=== PATIENT | female | born 1945 | race Caucasian/White ===

== ENCOUNTER 2017-02-02 12:07 | Inpatient (IN) | payer OTHER ==
[2017-02-02] MEDS ORDERED: ALBUTEROL 3 ML DEYVIAL IH ONE (12:26)
[2017-02-02] MEDS ORDERED: IPRATROPIUM/ALBUTEROL 3 ML DEYVIAL IH ONE (12:26)
[2017-02-02] MEDS ORDERED: methylPREDNISolone SOD SUCC 125 MG/2 ML VIAL IVP ONE (12:26)
--- NOTE | 2017-02-02 12:31 | EDPHY ---
H & P Time Seen by Provider: 02/02/17 12:14 HPI/ROS: CHIEF COMPLAINT: Cough and short of breath HISTORY OF PRESENT ILLNESS: This 72-year-old woman moved from [place] 1 month ago to be with her family. She has been having a cough and worsening shortness of breath over the last 3 days. Productive today. Worse with lying down or with any exertion. Associated intermittently with chest pain only when she coughs. Not associated with lower extremity swelling but a little bit of a subjective fever yesterday and today. Symptoms severe and she went to a retail clinic and had an oxygen saturation in the low 80s and was referred here. REVIEW OF SYSTEMS: Eye: no change in vision ENT: no sore throat Cardiac: No syncope or palpitations Pulmonary: No hemoptysis Abdomen: no vomiting, diarrhea, abdominal pain Musculoskeletal: no back pain Skin: no rash Neuro: no headache Constitutional: HPI : no urinary symptoms A comprehensive 10 point review of systems is otherwise negative aside from elements mentioned in the history of present illness. PAST MEDICAL HISTORY: Includes diabetes, anxiety, COPD. Peripheral vascular disease with lower extremity clot and angioplasty in the past. No history of venous thromboembolism. Social history: Current smoker, recently moved from [place] as noted above 1 month ago. General Appearance: Alert and conversant, cooperative. Eyes: No scleral icterus. ENT, Mouth: Normal mucous membranes. No angioedema or oral sinuses. Respiratory: Bilateral expiratory wheezes and rhonchi, diminished breath sounds bilaterally. No focal lung sounds or rales. Cardiovascular: Regular rate and rhythm. Frequent extrasystole. Gastrointestinal: Abdomen is soft and non tender. Neurological: Alert and oriented x3. Normally conversant. Face symmetric, normal movement and sensation in all extremities. Skin: Warm and dry, no rashes. Musculoskeletal: No peripheral edema and no joint swelling. No calf tenderness. Both feet are warm and well perfused. Psychiatric: Not agitated. Emergency Department course/MDM: Patient's oxygen saturation is in the low to mid 80s here in the emergency department. She is immediately placed on nasal cannula which got her to 96%. Differential is broad and includes but not limited to ACS and CHF, PE, COPD exacerbation, pneumonia, bronchitis, influenza. With her wheezing and rhonchi has COPD exacerbation or pneumonia are more likely than others. Blood cultures and lactate screening, chest x-ray, EKG, chest x-ray and Troponin. DuoNeb and albuterol nebulizer, 125 mg IV Solu-Medrol. Will require admission for hypoxia. 1254: Chest x-ray reviewed does not show pneumonia. Admission for bronchodilators, IV steroids, and supplemental oxygen. Reason for transfer to [facility] is inpatient hospital bed not available at [facility], discussed with family and consented. Requires ambulance transport because of need for supplemental oxygen. Results discussed with patient and family at this time. Does not appear to have pneumonia. Respiratory panel is pending. 1344: Patient is feeling better, still has bilateral wheezing. Smoking Status: Current every day smoker Constitutional: Initial Vital Signs Temperature (C) 36.6 C 02/02/17 13:00 Heart Rate 75 02/02/17 13:00 Respiratory Rate 18 02/02/17 13:00 Blood Pressure 139/64 H 02/02/17 13:00 O2 Sat (%) 86 L 02/02/17 13:00 Allergies/Adverse Reactions: hydrocodone Allergy (Verified 02/02/17 12:23) Home Medications: Medication Instructions Recorded ALPRAZolam 02/02/17 Atorvastatin Calcium 02/02/17 Carbidopa 02/02/17 Hydrochlorothiazide 02/02/17 Lisinopril 02/02/17 Oxybutynin 02/02/17 Pantoprazole Sodium 02/02/17 Plavix 02/02/17 Quetiapine Fumarate 02/02/17 VENLAFAXINE HCL 02/02/17 Medical Decision Making - Diagnostics EKG Interpretation: 12-lead EKG interpreted by me; official reading is in trace master. My interpretation is sinus rhythm rate 80 with PAC but no acute ST changes. Imaging Results: Imaging Impressions Chest X-Ray 02/02/17 12:26 Impression: 1. Bronchitis/airways disease. 2. No definite focal pneumonia. 3. Calcified granulomata. Chest x-ray personally interpreted as breast implants bronchitis and no pneumonia, reviewed with radiologist Kiah at 12:53 p.m. who agrees Differential Diagnosis: Differential diagnosis considered for shortness of breath including but not limited to pulmonary infectious process, COPD, asthma, pulmonary embolus and congestive heart failure. [facility] - Data Points Laboratory Results: Laboratory Results 02/02/17 12:26 02/02/17 12:35 02/02/17 02/02/17 02/02/17 12:35 12:35 12:35 WBC RBC Hgb Hct MCV MCH MCHC RDW Plt Count MPV Neut % (Auto) Lymph % (Auto) [place] % (Auto) Eos % (Auto) Baso % (Auto) Nucleat RBC Rel Count Absolute Neuts (auto) Absolute Lymphs (auto) Absolute Monos (auto) Absolute Eos (auto) Absolute Basos (auto) Absolute Nucleated RBC Immature Gran % Immature Gran # PT 13.3 SEC SEC (12.0-15.0) INR 1.04 (0.83-1.16) APTT 39.3 SEC H SEC (23.0-38.0) VBG Lactic Acid 1.0 mmol/L mmol/L (0.7-2.1) Sodium 144 mEq/L mEq/L (134-144) Potassium 4.0 mEq/L mEq/L (3.5-5.2) Chloride 105 mEq/L mEq/L (97-110) Carbon Dioxide 26 mEq/l mEq/l (22-31) Anion Gap 13 mEq/L mEq/L (8-16) BUN 18 mg/dL mg/dL (7-23) Creatinine 0.8 mg/dL mg/dL (0.6-1.0) Estimated GFR > 60 Glucose 109 mg/dL H mg/dL (70-100) Calcium 9.9 mg/dL mg/dL (8.5-10.4) Total Bilirubin 0.9 mg/dL mg/dL (0.1-1.4) Troponin I < 0.012 ng/mL ng/mL (0.000-0.034) 02/02/17 12:26 WBC 6.72 10^3/uL 10^3/uL (3.80-9.50) RBC 4.69 10^6/uL 10^6/uL (4.18-5.33) Hgb 13.9 g/dL g/dL (12.6-16.3) Hct 41.4 % % (38.0-47.0) MCV 88.3 fL fL (81.5-99.8) MCH 29.6 pg pg (27.9-34.1) MCHC 33.6 g/dL g/dL (32.4-36.7) RDW 13.1 % % (11.5-15.2) Plt Count 192 10^3/uL 10^3/uL (150-400) MPV 10.6 fL fL (8.7-11.7) Neut % (Auto) 70.0 % % (39.3-74.2) Lymph % (Auto) 19.9 % % (15.0-45.0) [place] % (Auto) 7.1 % % (4.5-13.0) Eos % (Auto) 2.5 % % (0.6-7.6) Baso % (Auto) 0.4 % % (0.3-1.7) Nucleat RBC Rel Count 0.0 % % (0.0-0.2) Absolute Neuts (auto) 4.69 10^3/uL 10^3/uL (1.70-6.50) Absolute Lymphs (auto) 1.34 10^3/uL 10^3/uL (1.00-3.00) Absolute Monos (auto) 0.48 10^3/uL 10^3/uL (0.30-0.80) Absolute Eos (auto) 0.17 10^3/uL 10^3/uL (0.03-0.40) Absolute Basos (auto) 0.03 10^3/uL 10^3/uL (0.02-0.10) Absolute Nucleated RBC 0.00 10^3/uL 10^3/uL (0-0.01) Immature Gran % 0.1 % % (0.0-1.1) Immature Gran # 0.01 10^3/uL 10^3/uL (0.00-0.10) PT INR APTT VBG Lactic Acid Sodium Potassium Chloride Carbon Dioxide Anion Gap BUN Creatinine Estimated GFR Glucose Calcium Total Bilirubin Troponin I Medications Given: Discontinued Medications Albuterol (Proventil Neb) 3 ml IH EDNOW ONE Stop: 02/02/17 12:27 Last Admin: 02/02/17 12:46 Dose: 3 ml Albuterol/Ipratropium (Duoneb) 3 ml IH EDNOW ONE Stop: 02/02/17 12:27 Last Admin: 02/02/17 12:46 Dose: 3 ml Methylprednisolone Sodium Succinate (Solu-Medrol) 125 mg IVP EDNOW ONE Stop: 02/02/17 12:27 Last Admin: 02/02/17 12:46 Dose: 125 mg Departure - Departure Disposition: [facility] Acute Clinical Impression: Chronic obstructive pulmonary disease with acute exacerbation Condition: Good
--- NOTE | 2017-02-02 12:34 | CPEKG ---
Heart Rate: 80 RR Interval: 750 P-R Interval: 180 QRSD Interval: 88 QT Interval: 384 QTC Interval: 443 P Orlando: 72 QRS Orlando: 53 T Wave Orlando: 64 EKG Severity - BORDERLINE ECG - EKG Impression: SINUS RHYTHM EKG Impression: ATRIAL PREMATURE COMPLEX EKG Impression: PROBABLE LEFT ATRIAL ABNORMALITY EKG Impression: BORDERLINE T ABNORMALITIES, ANT-LAT LEADS Electronically Signed By: Mohan Ray 02-Feb-2017 12:44:45
[2017-02-02 12:46] LABS: % IMMATURE GRANULYOCYTES 0.1 % (0.0-1.1); ABSOLUTE IMMATURE GRANULOCYTES 0.01 10^3/uL (0.00-0.10); ADD DIFF? NO; ADD MORPH? NO; ADD SCAN? NO; ATYPICAL LYMPHOCYTE FLAG 0 (0-99); FRAGMENT RBC FLAG 0 (0-99); HEMATOCRIT 41.4 % (38.0-47.0); HEMOGLOBIN 13.9 g/dL (12.6-16.3); LEFT SHIFT FLG 0 (0-99); LIPEMIA HEMOLYSIS FLAG 80 (0-99); MEAN CELL HEMOGLOBIN 29.6 pg (27.9-34.1); MEAN CELL HEMOGLOBIN CONCENTR. 33.6 g/dL (32.4-36.7); MEAN CELL VOLUME 88.3 fL (81.5-99.8); MEAN PLATELET VOLUME 10.6 fL (8.7-11.7); PLATELET CLUMPS FLAG 0 (0-99); PLATELET COUNT 192 10^3/uL (150-400); RED BLOOD CELL COUNT 4.69 10^6/uL (4.18-5.33); RED CELL DISTRIBUTION WIDTH 13.1 % (11.5-15.2)
[2017-02-02 12:58] LABS: ANION GAP 13 mEq/L (8-16); BILIRUBIN,TOTAL 0.9 mg/dL (0.1-1.4); CALCIUM 9.9 mg/dL (8.5-10.4); CARBON DIOXIDE 26 mEq/l (22-31); CHLORIDE 105 mEq/L (97-110); CREATININE 0.8 mg/dL (0.6-1.0); GLOMERULAR FILTRATION RATE > 60; GLUCOSE 109 mg/dL (70-100); INR 1.04 (0.83-1.16); PROTIME(PATIENT) 13.3 SEC (12.0-15.0); SODIUM 144 mEq/L (134-144)
[2017-02-02 12:59] LABS: APTT 39.3 SEC (23.0-38.0)
[2017-02-02 13:21] LABS: TROPONIN I < 0.012 ng/mL (0.000-0.034)
[2017-02-02] MEDS ORDERED: ONDANSETRON 4 MG/2 ML VIAL IVP PRN (15:03)
[2017-02-02] MEDS ORDERED: ONDANSETRON DISINTEGRATING 4 MG TAB PO PRN (15:03)
[2017-02-02] MEDS ORDERED: ALBUTEROL 3 ML DEYVIAL IH PRN (15:03)
[2017-02-02] MEDS ORDERED: ACETAMINOPHEN 325 MG TAB PO PRN (15:03)
[2017-02-02] MEDS: IPRATROPIUM/ALBUTEROL 3 ML DEYVIAL IH SCH ×2 (16:46→22:39)
[2017-02-02] MEDS ORDERED: D50W 25 GM/50 ML SYR IVP PRN (16:50)
[2017-02-02] MEDS: AZITHROMYCIN 250 MG TAB PO SCH (16:56)
--- NOTE | 2017-02-02 17:18 | GHP ---
[f rep st] HISTORY AND PHYSICAL DATE OF ADMISSION: 02/02/2017 CHIEF COMPLAINT: Shortness of breath. HISTORY OF PRESENT ILLNESS: A 72-year-old female with a history of COPD, non oxygen dependent, who r eports having some intermittent shortness of breath earlier this week, then in the last 48 hours deve loping marked worsening in shortness of breath and increasing cough. The patient describes it is pro ductive of some sputum, although cannot describe if it was discolored or not. The patient has been e xperiencing subjective fevers and chills. Denies any chest pain, nausea, vomiting, diarrhea, dysuria , hematuria, lower extremity edema. Has had some shoulder pain but denies myalgias or arthralgias. PAST MEDICAL HISTORY: 1. COPD. 2. Hypertension. 3. Diabetes. 4. Parkinson's. 5. Peripheral vascular disease status post angioplasty. SOCIAL HISTORY: The patient is still actively smoking half pack per day. Has greater than 50 pack-y ear history. Denies alcohol, illicit drugs, or marijuana. FAMILY HISTORY: Positive for lung cancer. REVIEW OF SYSTEMS: A 10-point review of systems is negative with the exception of that reported in t he HPI. ADVANCE DIRECTIVES: Patient is full COR, full tube. Her son would be her medical decision maker. PHYSICAL EXAMINATION: VITAL SIGNS: Blood pressure 130/47, heart rate 70, respiratory rate 16, satur ating 86% on room air, 36.6. GENERAL: This is an elderly female, appears older than her stated age, sitting up in her chair in no acute distress. HEENT: Notable for moist mucous membranes. Eye exam is negative for any icterus. CARDIAC: Patient is regular rate and rhythm. PULMONARY: Patient is diffusely rhonchorous with wheezing bilaterally and diminished air movement. GASTROINTESTINAL: Posi tive bowel sounds. ABDOMEN: Soft. MUSCULOSKELETAL: Negative for any lower extremity edema. SKIN: Negative for any rashes. NEUROLOGIC: The patient is alert and oriented x3. PSYCHIATRIC: She is slow in processing but cooperative. DATA: White count 6.7, hematocrit 41.4, platelets of 192, creatinine 0.8. Troponin less than 0.012. Chest x-ray, which I personally reviewed and interpreted, shows no acute infiltrates or edema. Rad iology comments on airway inflammation. ASSESSMENT AND PLAN: This is a 72-year-old female presenting with shortness of breath. 1. Acute hypoxic respiratory failure presumed secondary to acute chronic obstructive pulmonary disea se exacerbation. The patient does not appear to have pneumonia either by labs or chest x-ray. I hav e sent a respiratory panel to rule out influenza. Will initiate inhaled DuoNeb, scheduled p.o. predn isone 60 daily, and azithromycin oral. The patient historically does not use oxygen. Hopeful we alex l be able to wean her entirely before disposition. 2. Acute chronic obstructive pulmonary disease exacerbation. Unclear if there is an underlying geremias l trigger or not. Again, labs are pending. Will initiate inhaled medications, steroids, and oral an tibiotics. 3. Parkinson's. Will continue patient's home medications. Have asked for Physical Therapy, Occupat ional Therapy to evaluate the patient make sure there are no disposition needs. 4. Diabetes. Can cover with sliding scale insulin while inpatient. Blood sugars are reasonably con trolled at presentation. 5. Hypertension. Will continue her home medications when reconciled. Pressures are adequately cont rolled at presentation. 6. Peripheral vascular disease. It is unfortunate the patient is still actively smoking. Will cont inue her statin therapy as well as Plavix, prophylaxis with Lovenox. DIET: Regular. DISPOSITION: I expect greater than 2 midnights as the patient has multiple medical comorbidities, pr esenting with acute hypoxia, requiring aggressive pulmonary treatment and monitoring. I have discuss ed the case with the emergency room physician. The patient will be triaged to the [facility] for care. /[id number]/MODL
[2017-02-02] MEDS ORDERED: ALPRAZolam 0.5 MG TAB PO PRN (17:21)
[2017-02-02] MEDS: INSULIN LISPRO 100 UNIT/ML SC SCH (17:44)
[2017-02-02] MEDS: NICOTINE 21 MG/24 HR PATCH TD SCH (17:46)
[2017-02-02] MEDS ORDERED: QUEtiapine FUMARATE 200 MG TAB PO SCH (21:00)
[2017-02-02] MEDS ORDERED: ATORVASTATIN CALCIUM 40 MG TAB PO SCH (21:00)
[2017-02-02] MEDS ORDERED: CETIRIZINE 10 MG TAB PO SCH (21:00)
[2017-02-02] MEDS: OXYBUTYNIN CHLORIDE 5 MG TAB PO SCH (21:15)
[2017-02-02] MEDS: guaiFENesin 600 MG TAB.ER PO SCH (21:16)
[2017-02-02] MEDS: CARBIDOPA/LEVODOPA 25 MG/100 MG TAB PO SCH (21:17)
[2017-02-03 05:16] LABS: % IMMATURE GRANULYOCYTES 0.3 % (0.0-1.1); ABSOLUTE IMMATURE GRANULOCYTES 0.03 10^3/uL (0.00-0.10); ADD DIFF? NO; ADD MORPH? NO; ADD SCAN? NO; ATYPICAL LYMPHOCYTE FLAG 10 (0-99); FRAGMENT RBC FLAG 0 (0-99); HEMATOCRIT 37.7 % (38.0-47.0); HEMOGLOBIN 12.8 g/dL (12.6-16.3); LEFT SHIFT FLG 0 (0-99); LIPEMIA HEMOLYSIS FLAG 90 (0-99); MEAN CELL HEMOGLOBIN 30.3 pg (27.9-34.1); MEAN CELL VOLUME 89.1 fL (81.5-99.8); PLATELET CLUMPS FLAG 0 (0-99); PLATELET COUNT 183 10^3/uL (150-400); RED BLOOD CELL COUNT 4.23 10^6/uL (4.18-5.33)
[2017-02-03] MEDS ORDERED: FLU VACC QS 2017-18 (3YR+)/PF 0.5 ML SYR (FLUARIX QUAD) IM ONE (05:34)
[2017-02-03] MEDS: CARBIDOPA/LEVODOPA 25 MG/100 MG TAB PO SCH ×2 (05:49→11:51)
[2017-02-03 05:56] LABS: ANION GAP 8 mEq/L (8-16); CARBON DIOXIDE 26 mEq/l (22-31); CHLORIDE 104 mEq/L (97-110); CREATININE 0.7 mg/dL (0.6-1.0); GLOMERULAR FILTRATION RATE > 60; GLUCOSE 126 mg/dL (70-100); POTASSIUM 4.2 mEq/L (3.5-5.2); SODIUM 138 mEq/L (134-144)
[2017-02-03] MEDS: IPRATROPIUM/ALBUTEROL 3 ML DEYVIAL IH SCH ×2 (06:13→12:02)
[2017-02-03 08:21] VITALS: BP 118/46; TEMP 97.8
[2017-02-03] MEDS: guaiFENesin 600 MG TAB.ER PO SCH (08:28)
[2017-02-03] MEDS: AZITHROMYCIN 250 MG TAB PO SCH (08:28)
[2017-02-03] MEDS: OXYBUTYNIN CHLORIDE 5 MG TAB PO SCH (08:30)
[2017-02-03] MEDS: NICOTINE 21 MG/24 HR PATCH TD SCH (08:33)
[2017-02-03] MEDS: INSULIN LISPRO 100 UNIT/ML SC SCH ×2 (08:34→12:56)
[2017-02-03] MEDS ORDERED: LISINOPRIL/HCTZ 10/12.5 MG 1 EA TAB PO SCH (09:00)
[2017-02-03] MEDS ORDERED: predniSONE 20 MG TAB PO SCH (09:00)
[2017-02-03] MEDS ORDERED: PANTOPRAZOLE SODIUM 40 MG TAB PO SCH (09:00)
[2017-02-03] MEDS ORDERED: VENLAFAXINE XR 150 MG CAP PO SCH (09:00)
[2017-02-03] MEDS ORDERED: ENOXAPARIN 40 MG/0.4 ML SYR SC SCH (09:00)
[2017-02-03] MEDS ORDERED: CLOPIDOGREL BISULFATE 75 MG TAB PO SCH (09:00)
--- NOTE | 2017-02-03 10:29 | PDIAF ---
- Diagnosis Code Status: Full Code - Medication Management Discharge Medications: Medications to Continue on Transfer ALPRAZolam [Xanax 0.5 MG (*)] 0.5 mg PO BID PRN 02/02/17 [Last Taken 01/30/17] Atorvastatin Calcium [Lipitor 40 mg (*)] 40 mg PO HS 02/02/17 [Last Taken ] Carbidopa/Levodopa 25/100Mg [Sinemet 25/100 MG (*)] 1 tab PO 0700,1200,2100 [Last Taken 02/01/17] Cetirizine [ZyrTEC 10 mg (*)] 10 mg PO HS 02/02/17 [Last Taken 02/01/17] Clopidogrel Bisulfate [Clopidogrel] 75 mg PO DAILY 02/02/17 [Last Taken 02/01/17 ] Inhaler 02/02/17 [Last Taken Unknown] Lisinopril/Hydrochlorothiazide [Lisinopril-Hctz 10-12.5 mg Tab] 1 each PO DAILY 02/02/17 [Last Taken 02/01/17] Oxybutynin Chloride 5 mg PO BID 02/02/17 [Last Taken 02/01/17] Pantoprazole Sodium [Protonix 40mg (*)] 40 mg PO DAILY 02/02/17 [Last Taken ] QUEtiapine FUMARATE [Seroquel 200 mg (*)] 200 mg PO HS 02/02/17 [Last Taken ] Venlafaxine HCl [Venlafaxine HCl ER] 150 mg PO DAILY 02/02/17 [Last Taken ] metFORMIN HCL [Metformin HCl ER] 500 mg PO HS 02/02/17 [Last Taken 02/01/17] Acetaminophen [Tylenol 325mg (*)] 650 mg PO Q4HRS PRN tab 02/03/17 [Last Taken Unknown] Albuterol [Proventil Neb] 3 ml IH Q4-6PRN PRN #1 box 02/03/17 [Last Taken Unknown] Azithromycin [Zithromax] 500 mg PO DAILY #3 tab 02/03/17 [Last Taken Unknown] Ipratropium/Albuterol [Duoneb (*)] 3 ml IH QID #1 box 02/03/17 [Last Taken Unknown] Nicotine [Nicoderm Cq 21 mg (*)] 21 mg TD DAILY #14 patch 02/03/17 [Last Taken Unknown] guaiFENesin [Mucinex 600 MG (*)] 1,200 mg PO BID #14 tab.er 02/03/17 [Last Taken Unknown] predniSONE 60 mg PO DAILY #9 tablet 02/03/17 [Last Taken Unknown] Director Cardiology Antibiotics: n/a, short term azithro only Discharge Medications: Refer to the Discharge Home Medication list for PRN reason. PICC Care - Routine: N/A - Orders Services needed: Registered Nurse Home Care Face to Face: done 02/03/2017 Dr Cici Emery Oxygen: yes, 2 L NC Diet Recommendation: no restrictions on diet (is a diabetic though) Diet Texture: Regular Texture Diet Avila: Not applicable - Follow Up Care Current Providers and Referrals: NONE *PRIMARY CARE P,. [Primary Care Provider] - 1-2 days (needs a PCP- [facility] [place] [facility] [place]
--- NOTE | 2017-02-03 10:30 | PDHOMEO2F ---
Home Oxygen Face to Face Home Orders: I certify that a physician or a nurse practitioner or physician's assistant manager has had a [id number] encounter with this patient on the date of this order due to the diagnosis listed, which relates to the primary reason the patient requires home oxygen. Alternative treatments have been tried, or considered, and deemed ineffective. It is anticipated that supplemental oxygen will result in improvement with treatment. Home oxygen qualifying diagnosis: hypoxia, COPD exacerbation SpO2 on room air (%): 86 Frequency of home oxygen needed: continuous Home oxygen liters per minute: 2 Home oxygen delivery device: nasal cannula Concentrator: Yes E-tanks for mobility and back up: Yes If ordering portable O2, is the patient mobile in the home?: Yes I certify that, based on these findings, the home oxygen is medically necessary for this patient for the following length of time. Length of time home oxygen needed: 3 months (maybe longer, per PCP to reassess)
[2017-02-03 12:29] VITALS: PULSE 76; RESP 18; O2SAT 94
--- NOTE | 2017-02-03 12:44 | ASMTCMCOM ---
CM Note CM Note Notes: Spoke w/pt and son re; dc w/ home health RN for new O2. Lives w/son, CM made several referrals and waiting for responses. Date Signed: 02/03/2017 12:43 PM Electronically Signed By:Marva Kirkland RN
--- NOTE | 2017-02-03 13:45 | ASMTCMCOM ---
CM Note CM Note Notes: Pt set up with [facility], confirmed w/DIL and son. Pt to set up appt to establish care w/ Hola Osorio [phone] on Saturday or PCP in [facility] Dr. Carmen [phone]. Pt dcing home w/son and dil, no other needs. Date Signed: 02/03/2017 01:44 PM Electronically Signed By:Marva Kirkland RN
--- NOTE | 2017-02-03 17:28 | ASDISCHSUM ---
Discharge Information Plan Status:Home with DME or Oxygen Medically Cleared to Leave: Discharge Date:02/03/2017 01:43 PM CM D/C Disposition:Home Health Service ADT D/C Disposition:Home Health Service Projected Discharge Date:02/03/2017 02:00 PM Transportation at D/C:Family Discharge Delay Reason: Follow-Up Date:02/03/2017 02:00 PM Discharge Slot: Final Diagnosis: Placement Information Referral Type:*Home Health Care Services Referral ID:[id number] Provider Name:[facility] Address 1:[address] [place] [address] Address 2: City:[place] Selection Factors: State:[place] Patient Contact Information Contact Name:CARLY Relationship:Other Address:[address] City:[place] Alternate Phone: State/Zip Code:[place] [address] Email: Financial Information Financial Class:Medicare Advantage Plans Primary Plan Desc:[facility] Primary Plan Number:[id number] Secondary Plan Desc: Secondary Plan Number: Assessment Information [facility] CM Progress Note CM Note CM Note Notes: Spoke w/pt and son re; dc w/ home health RN for new O2. Lives w/son, CM made several referrals and waiting for responses. Date Signed: 02/03/2017 12:43 PM Electronically Signed By:Marva Kirkland RN [facility] CM Progress Note CM Note CM Note Notes: Pt set up with [facility], confirmed w/DIL and son. Pt to set up appt to establish care w/ Hola Bossblom [phone] on Saturday or PCP in [facility] Dr. Carmen [phone]. Pt dcing home w/son and dil, no other needs. Date Signed: 02/03/2017 01:44 PM Electronically Signed By:Marva Kirkland RN Intervention Information
== END 2017-02-03 13:43 | disposition home health service (06) | DRG 192 ==
LOC: CED 12:07 → CEDHOLD 12:57 → F3E 14:55
PROVIDERS: ADMIT Hospitalist; ATTEND Hospitalist
DX: J44.1 Chronic obstructive pulmonary disease with (acute) exacerbation (principal); I10 Essential (primary) hypertension; E11.9 Type 2 diabetes mellitus without complications; G20 Parkinson's disease; I73.9 Peripheral vascular disease, unspecified; Z72.0 Tobacco use; Z23 Encounter for immunization
CPT/HCPCS: 71020-PO; 80048-PO; 82247-PO; 83605-PO; 84484-PO; 85025-PO; 85610-PO; 85730-PO; 97161-GP; G0008; G8978-GP-CI; G8979-GP-CI; J1650; J1815

== ENCOUNTER 2017-03-05 14:35 | Emergency (ER) | payer OTHER ==
[2017-03-05 14:42] VITALS: O2SAT 96
--- NOTE | 2017-03-05 14:56 | EDPHY ---
H & P Time Seen by Provider: 03/05/17 14:54 HPI/ROS: Chief complaint. Fall HPI. 72-year-old female presents emergency department with head injury. This morning she when out to get her dog that had gotten outside and she was concerned about it being out in traffic. The dog knocked her off balance and she fell from standing position. She hit her head on concrete. Did not lose consciousness. But does have headache. She has some neck pain as well. No change in her vision. She sustained abrasion to the right elbow that was cleaned and dressed by her home health aide. She has good range of motion about the right arm. No chest discomfort, trouble breathing, abdominal pain, other injury to left arm or legs. ROS Constitutional. no fever/chills, no weakness Eyes. no problems with vision ENT. no sore throat, no nasal drainage Cardiovascular. no chest pain Respiratory. no shortness of breath, no cough Abdominal. no abdominal pain, no nausea/vomiting, no diarrhea . no problems urinating MS. neck pain Skin. no rash Lymph. no swollen glands Neuro. Headache Past Medical/Surgical History: Past medical history significant for Parkinson's disease, COPD, diabetes, hypertension, angioplasty left leg on Plavix Social History: Single, nonsmoker, no alcohol Smoking Status: Smoker current status UNK Physical Exam: General Appearance: Alert pleasant well-developed female mild distress vital signs are stable Eyes: Pupils equal and round no pallor or injection. ENT, no hemotympanum or Arizmendi sign. No oral pharyngeal or dental trauma. She has a bump on the back of her head. No laceration Respiratory: There are no retractions, lungs are clear to auscultation. Cardiovascular: Regular rate and rhythm. Gastrointestinal: Abdomen is soft and nontender, no masses, bowel sounds normal. Neurological: Awake and alert, sensory and motor exams grossly normal. Skin: Warm and dry, no rashes. Musculoskeletal: Neck is diffusely tender Extremities abrasion right elbow with good range of motion Psychiatric: Patient is oriented X 3, there is no agitation. Constitutional: Initial Vital Signs Temperature (C) 36.8 C 03/05/17 14:36 Heart Rate 67 03/05/17 14:36 Respiratory Rate 18 03/05/17 14:36 Blood Pressure 149/58 H 03/05/17 14:36 O2 Sat (%) 96 03/05/17 14:36 O2 Delivery Mode Room Air Allergies/Adverse Reactions: hydrocodone Allergy (Verified 02/02/17 12:23) abilify Allergy (Uncoded 02/02/17 15:10) Home Medications: Medication Instructions Recorded ALPRAZolam [Xanax 0.5 MG (*)] 0.5 mg PO BID PRN 02/02/17 Atorvastatin Calcium [Lipitor 40 40 mg PO HS 02/02/17 mg (*)] Carbidopa/Levodopa 25/100Mg 1 tab PO 0700,1200,2100 02/02/17 [Sinemet 25/100 MG (*)] Cetirizine [ZyrTEC 10 mg (*)] 10 mg PO HS 02/02/17 Clopidogrel Bisulfate [Clopidogrel] 75 mg PO DAILY 02/02/17 Inhaler 02/02/17 Lisinopril/Hydrochlorothiazide 1 each PO DAILY 02/02/17 [Lisinopril-Hctz 10-12.5 mg Tab] Oxybutynin Chloride 5 mg PO BID 02/02/17 Pantoprazole Sodium [Protonix 40mg 40 mg PO DAILY 02/02/17 (*)] QUEtiapine FUMARATE [Seroquel 200 200 mg PO HS 02/02/17 mg (*)] Venlafaxine HCl [Venlafaxine HCl 150 mg PO DAILY 02/02/17 ER] metFORMIN HCL [Metformin HCl ER] 500 mg PO HS 02/02/17 Acetaminophen [Tylenol 325mg (*)] 650 mg PO Q4HRS PRN tab 02/03/17 Albuterol [Proventil Neb] 3 ml IH Q4-6PRN PRN #1 box 02/03/17 Azithromycin [Zithromax] 500 mg PO DAILY #3 tab 02/03/17 Ipratropium/Albuterol [Duoneb (*)] 3 ml IH QID #1 box 02/03/17 Nicotine [Nicoderm Cq 21 mg (*)] 21 mg TD DAILY #14 patch 02/03/17 guaiFENesin [Mucinex 600 MG (*)] 1,200 mg PO BID #14 tab.er 02/03/17 predniSONE 60 mg PO DAILY #9 tablet 02/03/17 Medical Decision Making - Diagnostics Imaging Results: Imaging Impressions Cervical Spine CT 03/05/17 15:11 Impression: Head CT within normal limits. 2. CT Cervical Spine Without Contrast History: Trauma. Fall. Technique: Multislice helical CT through the cervical spine without contrast from the skull base to T1. Soft tissue and bone evaluation is performed. Sagittal and coronal reconstructions are obtained and reviewed. Dose reduction techniques were utilized. Findings: Cervical alignment is anatomic, but straight and associated with a moderate dextroscoliosis. There is a mild degenerative retrolisthesis at C4-C5 where the disk space is moderately narrowed. The C5-C6 disk space is also moderately narrowed. There are moderate posterior osteophytes encroaching on the neural canal between C4 and C6. There is degenerative sclerosis within the left C4 vertebral body. No fracture or dislocation is identified. The relationship between skull base and C1 is normal. The C1-C2 articulation is normally aligned, but severely osteoarthritic. The odontoid process is intact. Disk spaces between C2 and C4 maintain their normal height. Facet joints are normally aligned, but demonstrate multilevel arthritis on the left and fusion on the right between C2 and C4. The cervical thoracic junction is normally aligned. There is moderate right foraminal stenosis at C3-C4, moderate bilateral foraminal stenosis at C4-C5, moderate right and severe left foraminal stenosis at C5-C6 and mild left foraminal stenosis is C6-C7. Soft tissue window evaluation does not show evidence of epidural or prevertebral hematoma. Impression: 1. No fracture identified. 2. Abnormal cervical curvature. Query muscle spasm? 3. Multilevel degenerative change described above. Results called and discussed with FANNY OCHOA, at 03/05/2017 15:50 Final results are concordant with the initial interpretation. General information for patients regarding this examination can be found at [email or web address]. If you have questions or comments about this report, please contact me at [phone] (hospital) or [phone] (cell). General information for patients regarding this examination can be found at [email or web address]. If you have questions or comments about this report, please contact me at (hospital) or [phone] (cell). Head CT 03/05/17 15:11 Impression: Head CT within normal limits. 2. CT Cervical Spine Without Contrast History: Trauma. Fall. Technique: Multislice helical CT through the cervical spine without contrast from the skull base to T1. Soft tissue and bone evaluation is performed. Sagittal and coronal reconstructions are obtained and reviewed. Dose reduction techniques were utilized. Findings: Cervical alignment is anatomic, but straight and associated with a moderate dextroscoliosis. There is a mild degenerative retrolisthesis at C4-C5 where the disk space is moderately narrowed. The C5-C6 disk space is also moderately narrowed. There are moderate posterior osteophytes encroaching on the neural canal between C4 and C6. There is degenerative sclerosis within the left C4 vertebral body. No fracture or dislocation is identified. The relationship between skull base and C1 is normal. The C1-C2 articulation is normally aligned, but severely osteoarthritic. The odontoid process is intact. Disk spaces between C2 and C4 maintain their normal height. Facet joints are normally aligned, but demonstrate multilevel arthritis on the left and fusion on the right between C2 and C4. The cervical thoracic junction is normally aligned. There is moderate right foraminal stenosis at C3-C4, moderate bilateral foraminal stenosis at C4-C5, moderate right and severe left foraminal stenosis at C5-C6 and mild left foraminal stenosis is C6-C7. Soft tissue window evaluation does not show evidence of epidural or prevertebral hematoma. Impression: 1. No fracture identified. 2. Abnormal cervical curvature. Query muscle spasm? 3. Multilevel degenerative change described above. Results called and discussed with FANNY OCHOA, at 03/05/2017 15:50 Final results are concordant with the initial interpretation. General information for patients regarding this examination can be found at [email or web address]. If you have questions or comments about this report, please contact me at (hospital) or [phone] (cell). General information for patients regarding this examination can be found at [email or web address]. If you have questions or comments about this report, please contact me at [phone] (hospital) or [phone] (cell). CT head without contrast and cervical spine CT reviewed by me and discussed with Dr. Alejandre are shown to have extensive degenerative cervical spine findings however there is no evidence of acute injury including fracture, dislocation skull fracture, intracranial bleed Procedures: Patient verses Advil rather than Tylenol for discomfort ED Course/Re-evaluation: On re-evaluation patient is stable. The patient, her son, and I discussed imaging study results, treatment plan including criteria for return importance of follow-up further evaluation. They expressed understanding and agreement Differential Diagnosis: I considered intracranial bleeding, skull fracture, cervical spine injury. This appears to be fall with contusion - Data Points Medications Given: Discontinued Medications Ibuprofen (Motrin) 400 mg PO EDNOW ONE Stop: 03/05/17 15:12 Last Admin: 03/05/17 15:14 Dose: 400 mg Departure - Departure Disposition: Home, Routine, Self-Care Clinical Impression: Head contusion Qualifiers: Encounter type: initial encounter Contusion of head detail: scalp Qualified Code(s): S00.03XA - Contusion of scalp, initial encounter Condition: Good Instructions: Contusion in Adults (ED) Additional Instructions: Ice to sore area next 24 hours. Tylenol 650 mg every 6 hours as needed for pain. Continue regular medications. Return for worsening headache. Recheck in 2 days if not improved Referrals: Bradley Velasquez [Primary Care Provider] - 2-3 days, if not improved
[2017-03-05] MEDS ORDERED: IBUPROFEN 200 MG TAB PO ONE (15:11)
[2017-03-05 15:16] VITALS: BP 136/53; PULSE 55
[2017-03-05 15:17] VITALS: RESP 20; TEMP 97.5
== END 2017-03-05 17:06 | disposition home or self-care (01) ==
DX: S00.03XA Contusion of scalp, initial encounter (principal); G20 Parkinson's disease; J44.9 Chronic obstructive pulmonary disease, unspecified; E11.9 Type 2 diabetes mellitus without complications; I10 Essential (primary) hypertension; F17.200 Nicotine dependence, unspecified, uncomplicated; Z79.84 Long term (current) use of oral hypoglycemic drugs; W01.0XXA Fall on same level from slipping, tripping and stumbling without subsequent striking against object, initial encounter; Y99.8 Other external cause status

== ENCOUNTER → 2017-05-17 | Outpatient (CLI) | payer OTHER | LOC: CIMAGING 16:26 | PROVIDERS: ATTEND Family Medicine | DX: M19.012 Primary osteoarthritis, left shoulder (principal); M19.032 Primary osteoarthritis, left wrist; R07.89 Other chest pain | CPT/HCPCS: 71101-PO; 73030-PO; 73100-PO ==

== ENCOUNTER 2017-08-06 19:32 | Emergency (ER) | payer OTHER, MEDICARE ==
[2017-08-06 19:55] VITALS: RESP 16
[2017-08-06] MEDS ORDERED: NS 500 ML IV ONE (20:02)
--- NOTE | 2017-08-06 20:06 | CPEKG ---
Heart Rate: 64 RR Interval: 938 P-R Interval: 184 QRSD Interval: 104 QT Interval: 392 QTC Interval: 405 P [place]: 73 QRS [place]: 11 T Wave [place]: 56 EKG Severity - OTHERWISE NORMAL ECG - EKG Impression: SINUS RHYTHM EKG Impression: LOW VOLTAGE IN FRONTAL LEADS Electronically Signed By: Jeremiah Lopez 06-Aug-2017 21:00:57
--- NOTE | 2017-08-06 20:23 | EDPHY ---
H & P Time Seen by Provider: 08/06/17 19:41 HPI/ROS: HPI Fainting episode, right leg weakness. 72-year-old female by private vehicle with daughter and son-in-law. The patient has a history of Parkinson's. She reports that at 10:30 a.m. This morning she had an episode of sudden onset lightheadedness after she got out of bed. She was near a wall and was able to lower herself to the floor by sliding down the wall. She reports that she did not fall hard. She reports that since this time she has had a hard time supporting herself on her right lower extremity. She has chronic right hip pain. She has a history of a left lower extremity angioplasty. She is on Plavix for this. She reports she has had this chronic right hip pain for months if not years. Her daughter spoke with her primary care physician who was concerned she may have had a stroke and told her daughter to bring the patient to the emergency department. On my evaluation she now denies any significant weakness in her right lower extremity. She is ambulating and bearing weight on the right lower extremity with her normal gait. She is not sure she lost consciousness fully earlier this morning but states that she had no associated chest pain, severe headache, shortness of breath, palpitations at that time. ROS: Constitutional: No fever, no chills. As above. Eyes: No discharge. No changes in vision. ENT: No sore throat. No nasal congestion or rhinorrhea. Respiratory: No cough. No shortness of breath. Cardiac: No chest pain, no palpitations. Gastrointestinal: No abdominal pain, no vomiting, no diarrhea. Genitourinary: No hematuria. No dysuria or increased frequency with urination. Musculoskeletal: No back pain. No neck pain. As above. No other extremity pain. Skin: No rashes. No lacerations or abrasions. Neurological: No headache. No focal weakness or altered sensation. Past medical history: COPD, hypertension, diabetes, Parkinson's, peripheral vascular disease status post angioplasty of the left lower extremity, status post surgery for dental abscess with associated facial cellulitis she is currently on Augmentin and Flagyl for this, it is resolving. Osteoporosis. Social history: She still smokes. No IV drugs or street drugs. No alcohol. She lives with her daughter and son-in-law. Physical Exam: General Appearance: Alert, no distress. This patient is responding to questions appropriately and in full sentences. This patient appears well- hydrated and well-nourished. Head: Normocephalic atraumatic. No evidence of facial cellulitis. Eyes: Pupils equal and round no pallor or injection. No lid edema, erythema or injection. ENT, Mouth: Dentition intact. No tongue lacerations or abrasions. Mucous membranes are moist. The pharyngeal tissues are unremarkable. No edema or swelling. No asymmetry suggestive of abscess. No erythema or exudates. Respiratory: There are no retractions, lungs are clear to auscultation with good air movement bilaterally. Cardiovascular: Regular rate and rhythm. No murmur. Gastrointestinal: Abdomen is soft and nontender, no masses, bowel sounds normal. No focal tenderness at McBurney's point. No Dave sign. Neurological: Motor sensory function is grossly intact. Cranial nerves are normal. Gait is normal. Skin: Warm and dry, no rashes. Musculoskeletal: Neck is supple and nontender. No midline cervical, thoracic, lumbar tenderness on palpation. No CVA tenderness or sacroiliac tenderness on palpation bilaterally. The bilateral upper and bilateral lower extremities are symmetrical. All joints range without pain or impingement. No pain on axial compression of the right hip. She has some discomfort with internal and external rotation of the right hip. She has normal capillary refill in all digits of the bilateral lower extremities. Psychiatric: No agitation. No depression. Database: EKG: EKG time is 8:04 p.m.; EKG shows a narrow complex normal sinus rhythm with a ventricular rate of 64. Low voltage noted in the frontal leads. The DE, QRS, QT intervals are within normal limits. There are no ST-T wave changes indicative of ischemic or injury pattern. No evidence of right heart strain. No evidence of Brugada syndrome, WPW, hypertrophic cardiomyopathy. Interpreted by me. Imaging: CT scan of head without contrast: Microvascular disease, atrophy, old right basil ganglia infarct noted from previous study February of 2017. No bleed. No other significant findings. Results were discussed with staff radiologist Dr. Chris Dupont. Right hip x-ray series: Negative for fracture, subluxation, dislocation. Interpreted by me. Procedures: Emergency department course: Vital signs reviewed and are within normal limits. This patient presents with a history of present illness consistent with a vasovagal syncopal event verses a possible TIA. 9:15 p.m., patient re-evaluated. Repeat neurologic Assessment is nonfocal. She has no complaints at this time. Results of her emergency department workup and diagnostic testing discussed with her and family. I am still awaiting results of her urinalysis. I discussed admission for telemetry observation and an MRI to further evaluate for TIA. She does not want to do this at this time. She is asking for discharge and follow up with her primary care physician at [facility] tomorrow. I feel she understands the risks of declining admission as does her family. These risks were discussed with them in detail. The patient competently engages in shared decision making. They demonstrate capacitance to make decisions. They wish to discuss her disposition and then talk to me in a few minutes. 9:30 p.m., patient re-evaluated. Again repeat neurologic Assessment is nonfocal. Results of urinalysis discussed. The patient desires to go home at this time. She will follow up with her primary care physician, Dr. Shultz, tomorrow for re-evaluation. Her daughter and son-in-law are comfortable with this decision. Return to emergency department precautions were thoroughly discussed with them. All of their questions were answered. The patient was discharged from the emergency department in good condition. Differential Diagnosis: The differential diagnosis on this patient includes but is not limited to syncope, TIA, chronic right hip pain. This represents a partial list of diagnoses considered. These considerations are based on history, physical exam , past history, reassessment and diagnostic testing. Smoking Status: Former smoker Constitutional: Initial Vital Signs Temperature (C) 37.3 C 08/06/17 19:51 Heart Rate 67 08/06/17 19:51 Respiratory Rate 16 08/06/17 19:51 Blood Pressure 124/77 H 08/06/17 19:51 O2 Sat (%) 92 08/06/17 19:51 O2 Delivery Mode Room Air Allergies/Adverse Reactions: hydrocodone Allergy (Verified 08/06/17 19:49) abilify Allergy (Uncoded 08/06/17 19:49) Home Medications: Medication Instructions Recorded Atorvastatin Calcium [Lipitor 40 40 mg PO HS 02/02/17 mg (*)] Carbidopa/Levodopa 25/100Mg 1 tab PO 0700,1200,2100 02/02/17 [Sinemet 25/100 MG (*)] Cetirizine [ZyrTEC 10 mg (*)] 10 mg PO HS 02/02/17 Clopidogrel Bisulfate [Clopidogrel] 75 mg PO DAILY 02/02/17 Inhaler 02/02/17 Lisinopril/Hydrochlorothiazide 1 each PO DAILY 02/02/17 [Lisinopril-Hctz 10-12.5 mg Tab] Oxybutynin Chloride 5 mg PO BID 02/02/17 Pantoprazole Sodium [Protonix 40mg 40 mg PO DAILY 02/02/17 (*)] QUEtiapine FUMARATE [Seroquel 200 200 mg PO HS 02/02/17 mg (*)] Venlafaxine HCl [Venlafaxine HCl 150 mg PO DAILY 02/02/17 ER] Albuterol [Proventil Neb] 3 ml IH Q4-6PRN PRN #1 box 02/03/17 Ipratropium/Albuterol [Duoneb (*)] 3 ml IH QID #1 box 02/03/17 Amox Tr/K Clav (Augmentin) 08/06/17 [Augmentin 250/125 MG TAB (*)] metroNIDAZOLE [Flagyl 500 mg (*)] 08/06/17 traMADol [Ultram 50 mg (*)] 08/06/17 Medical Decision Making - Diagnostics Imaging Results: Imaging Impressions Head CT 08/06/17 20:03 Impression: 1. Old right basal ganglia lacunar infarct. 2. No acute hemorrhage, hydrocephalus, or mass effect. 3. Cerebrovascular atherosclerosis. 4. No definite acute infarct. 5. Moderate microvascular ischemic gliosis. 6. Consider MRI of the brain, if there is continued clinical concern. Findings and recommendations discussed with Emergency Department physician, Jeremiah Lopez MD at 20:43 hour, 08/06/2017. Final report concurs with initial preliminary interpretation. Hip X-Ray 08/06/17 20:04 Impression: No definite fracture or dislocation of the right hip. - Data Points Laboratory Results: Laboratory Results 08/06/17 20:15 08/06/17 20:15 08/06/17 08/06/17 08/06/17 21:00 20:15 20:15 WBC RBC Hgb Hct MCV MCH MCHC RDW Plt Count MPV Neut % (Auto) Lymph % (Auto) [place] % (Auto) Eos % (Auto) Baso % (Auto) Nucleat RBC Rel Count Absolute Neuts (auto) Absolute Lymphs (auto) Absolute Monos (auto) Absolute Eos (auto) Absolute Basos (auto) Absolute Nucleated RBC Immature Gran % Immature Gran # PT 14.1 SEC SEC (12.0-15.0) INR 1.10 (0.83-1.16) APTT 36.3 SEC SEC (23.0-38.0) Sodium 131 mEq/L L mEq/L (135-145) Potassium 4.5 mEq/L mEq/L (3.5-5.2) Chloride 95 mEq/L L mEq/L (97-110) Carbon Dioxide 27 mEq/l mEq/l (22-31) Anion Gap 9 mEq/L mEq/L (8-16) BUN 26 mg/dL H mg/dL (7-23) Creatinine 0.8 mg/dL mg/dL (0.6-1.0) Estimated GFR > 60 Glucose 95 mg/dL mg/dL (70-100) Calcium 9.5 mg/dL mg/dL (8.5-10.4) Troponin I < 0.012 ng/mL ng/mL (0.000-0.034) Urine Color YELLOW Urine Appearance CLEAR Urine pH 5.5 (5.0-7.5) Ur Specific [place] 1.010 (1.002-1.030) Urine Protein NEGATIVE (NEGATIVE) Urine Ketones NEGATIVE (NEGATIVE) Urine Blood NEGATIVE (NEGATIVE) Urine Nitrate NEGATIVE (NEGATIVE) Urine Bilirubin NEGATIVE (NEGATIVE) Urine Urobilinogen 0.2 EU EU (0.2-1.0) Ur Leukocyte Esterase NEGATIVE (NEGATIVE) Urine RBC NONE SEEN /hpf /hpf (0-3) Urine WBC NONE SEEN /hpf /hpf (0-3) Ur Epithelial Cells TRACE /lpf /lpf (NONE-1+) Urine Bacteria NONE SEEN /hpf /hpf (NONE SEEN) Urine Glucose NEGATIVE (NEGATIVE) 08/06/17 20:15 WBC 6.18 10^3/uL 10^3/uL (3.80-9.50) RBC 3.81 10^6/uL L 10^6/uL (4.18-5.33) Hgb 11.3 g/dL L g/dL (12.6-16.3) Hct 32.7 % L % (38.0-47.0) MCV 85.8 fL fL (81.5-99.8) MCH 29.7 pg pg (27.9-34.1) MCHC 34.6 g/dL g/dL (32.4-36.7) RDW 12.2 % % (11.5-15.2) Plt Count 226 10^3/uL 10^3/uL (150-400) MPV 9.2 fL fL (8.7-11.7) Neut % (Auto) 62.0 % % (39.3-74.2) Lymph % (Auto) 24.1 % % (15.0-45.0) [place] % (Auto) 7.9 % % (4.5-13.0) Eos % (Auto) 5.5 % % (0.6-7.6) Baso % (Auto) 0.3 % % (0.3-1.7) Nucleat RBC Rel Count 0.0 % % (0.0-0.2) Absolute Neuts (auto) 3.83 10^3/uL 10^3/uL (1.70-6.50) Absolute Lymphs (auto) 1.49 10^3/uL 10^3/uL (1.00-3.00) Absolute Monos (auto) 0.49 10^3/uL 10^3/uL (0.30-0.80) Absolute Eos (auto) 0.34 10^3/uL 10^3/uL (0.03-0.40) Absolute Basos (auto) 0.02 10^3/uL 10^3/uL (0.02-0.10) Absolute Nucleated RBC 0.00 10^3/uL 10^3/uL (0-0.01) Immature Gran % 0.2 % % (0.0-1.1) Immature Gran # 0.01 10^3/uL 10^3/uL (0.00-0.10) PT INR APTT Sodium Potassium Chloride Carbon Dioxide Anion Gap BUN Creatinine Estimated GFR Glucose Calcium Troponin I Urine Color Urine Appearance Urine pH Ur Specific [place] Urine Protein Urine Ketones Urine Blood Urine Nitrate Urine Bilirubin Urine Urobilinogen Ur Leukocyte Esterase Urine RBC Urine WBC Ur Epithelial Cells Urine Bacteria Urine Glucose Medications Given: Discontinued Medications Sodium Chloride (Ns) 500 mls @ 0 mls/hr IV ONCE ONE; Wide Open PRN Reason: Protocol Stop: 08/06/17 20:03 Last Admin: 08/06/17 20:20 Dose: 500 mls Departure - Departure Disposition: Home, Routine, Self-Care Clinical Impression: Near syncope, Chronic right hip pain Condition: Good Instructions: Hip Pain (ED), Syncope in Older Adults (ED) Additional Instructions: Read and follow provided instructions. Follow-up with your primary care physician, Dr. Shultz, tomorrow as discussed for re-evaluation. She will have access to our records and testing that was done here tonight. Take your medication as prescribed only. Return to the emergency department for worsening symptoms, worsening hip pain, lightheadedness, fainting, loss of sensation or weakness or other serious concerns. Go to the main emergency department at [facility]. Referrals: Aleyda Shultz MD [Primary Care Provider] - As per Instructions
[2017-08-06 20:27] LABS: PLATELET COUNT 226 10^3/uL (150-400)
[2017-08-06 20:40] LABS: INR 1.1 (0.83-1.16); PROTIME(PATIENT) 14.1 SEC (12.0-15.0)
[2017-08-06 21:43] VITALS: BP 153/62; PULSE 60; TEMP 98.6; O2SAT 93
== END 2017-08-06 21:43 | disposition home or self-care (01) ==
LOC: CED 19:32
DX: R55 Syncope and collapse (principal); M25.551 Pain in right hip; G89.29 Other chronic pain; E86.9 Volume depletion, unspecified; J44.9 Chronic obstructive pulmonary disease, unspecified; I10 Essential (primary) hypertension; E11.9 Type 2 diabetes mellitus without complications; G20 Parkinson's disease; Z87.891 Personal history of nicotine dependence
CPT/HCPCS: 70450-PO; 73502-PO; 80048-PO; 81003-PO; 81015-PO; 84484-PO; 85025-PO; 85610-PO; 85730-PO

== ENCOUNTER → 2017-09-06 | Outpatient (CLI) | payer OTHER, MEDICARE | LOC: CIMAGING 14:26 | PROVIDERS: ATTEND Specialist | DX: R31.9 Hematuria, unspecified (principal) | CPT/HCPCS: 76770-PO ==

== ENCOUNTER 2017-10-10 04:45 | Observation (INO) | payer OTHER, MEDICARE ==
--- NOTE | 2017-10-09 21:23 | PDANEPAE ---
ANE Past Medical History - Cardiovascular History Hx Hypertension: Yes Hx Arrhythmias: No Hx Chest Pain: No Hx Coronary Artery / Peripheral Vascular Disease: Yes Hx CHF / Valvular Disease: No Hx Palpitations: No Cardiovascular History Comment: PAD - Pulmonary History Hx COPD: Yes Hx Asthma/Reactive Airway Disease: No Hx Recent Upper Respiratory Infection: Yes Hx Oxygen in Use at Home: Yes O2 in Use at Home (L/minute): 2.5 L Hx Sleep Apnea: No Sleep Apnea Screening Result - Last Documented: Negative Pulmonary History Comment: NOCTURNAL HYPOXIA R/T COPD. STOPPED SMOKING LAST , MOVED TO [place] - Neurologic History Hx Cerebrovascular Accident: No Hx Seizures: No Hx Dementia: No - Endocrine History Hx Diabetes: Yes Hypothyroid: No Hyperthyroid: No Obesity: no Endocrine History Comment: NO MEDS - Renal History Hx Renal Disorders: No - Liver History Hx Hepatic Disorders: No - Neurological & Psychiatric Hx Hx Neurological and Psychiatric Disorders: Yes Neurological / Psychiatric History Comment: ESSENTIAL,RLS. DEPRESSION,ANXIETY - Cancer History Hx Cancer: No - Congenital Disorder History Hx Congenital Disorders: No - GI History GERD: mild Hx Gastrointestinal Disorders: Yes Gastrointestinal History Comment: REFLUX - Other Health History Other Health History: ONE SORE SPOT LEFT FOOT. DENTURES FULL TOP,PARTIAL BOTTOM - Chronic Pain History Chronic Pain: Yes (LEFT SIDE SHOULDER /ARM, RIGHT LEG) - Surgical History Prior Surgeries: angiolasty left leg ANE Review of Systems Review of Systems: - Exercise capacity Exercise capacity: <4 METS METS (RN): 3 METS ANE Patient History - Allergies Allergies/Adverse Reactions: hydrocodone Allergy (Verified 10/04/17 11:29) Other-Enter Comments abilify Allergy (Uncoded 10/04/17 11:29) Other-Enter Comments - Home Medications Home Medications: Atorvastatin Calcium [Lipitor 40 mg (*)] 40 mg PO HS 02/02/17 [Last Taken 22:00] Carbidopa/Levodopa 25/100Mg [Sinemet 25/100 MG (*)] 1 tab PO 0700,1200,2100 [Last Taken 10/09/17 22:00] Cetirizine [ZyrTEC 10 mg (*)] 10 mg PO HS 02/02/17 [Last Taken 10/09/17 22:00] Clopidogrel Bisulfate [Clopidogrel] 75 mg PO DAILY 02/02/17 [Last Taken 10/01/17 ] Oxybutynin Chloride 5 mg PO BID 02/02/17 [Last Taken 10/09/17 22:00] Pantoprazole Sodium [Protonix 40mg (*)] 40 mg PO DAILY PRN 02/02/17 [Last Taken 10/09/17 22:00] QUEtiapine FUMARATE [Seroquel 200 mg (*)] 200 mg PO HS 02/02/17 [Last Taken 22:00] Venlafaxine HCl [Venlafaxine HCl ER] 150 mg PO DAILY 02/02/17 [Last Taken 08:30] traMADol [Ultram 50 mg (*)] 50 mg PO DAILY PRN 08/06/17 [Last Taken 10/07/17] ALPRAZolam [Xanax 0.5 MG (*)] 0.5 mg PO DAILY PRN 10/03/17 [Last Taken 10/09/17 08:30] Azelastine HCl 2 sprays EACHNARE DAILY 10/03/17 [Last Taken 10/09/17 22:00] Lisinopril [Zestril 20 mg (*)] 20 mg PO DAILY 10/03/17 [Last Taken 10/09/17 08: 30] - Anes Hx Anes Hx: no prior problems - Smoking Hx Smoking Status: Former smoker Marijuana use: No - Alcohol Use Alcohol Use: Rarely - Family Anes Hx Family Anes Hx: neg - N/A Family Hx Anesthesia Complications: none ANE Labs/Vital Signs - Vital Signs Height: 165.1 cm Weight: 64.41 kg ANE Physical Exam - Airway Neck exam: decreased ROM Mallampati Score: Class 3 Mouth exam: dentures - Pulmonary Pulmonary: no respiratory distress, no rales or rhonchi, clear to auscultation - Cardiovascular Cardiovascular: regular rate and rhythym, no murmur, rub, or gallop - ASA Status ASA Status: III ANE Anesthesia Plan Anesthesia Plan: general endotracheal anesthesia Total IV Anesthesia: No
[2017-10-10] MEDS ORDERED: ACETAMINOPHEN 500 MG TAB PO ONE (05:12)
[2017-10-10] MEDS ORDERED: GABAPENTIN 300 MG CAP PO ONE (05:12)
[2017-10-10] MEDS ORDERED: ceFAZolin 2 GM/SWFI 2 GM/20 ML SYR IVP ONE (05:12)
[2017-10-10] MEDS ORDERED: LR 1,000 ML IV ONE (05:16)
[2017-10-10] MEDS ORDERED: LIDOCAINE 1% 2 ML INJ ID PRN (05:16)
[2017-10-10] MEDS ORDERED: BACITRACIN 50,000 UNITS/10 ML SYR IRR ONE (06:45)
[2017-10-10] MEDS ORDERED: THROMBIN (BOVINE) 20,000 UNIT VIAL TP ONE (06:45)
[2017-10-10] MEDS ORDERED: SURGIFLO MATRIX KIT WITH THROMBIN 8 ML TP ONE (06:57)
--- NOTE | 2017-10-10 07:05 | PDHPUP ---
History & Physical Update H&P update statement: This history and physical update is based on an assessment of the patient which was completed after admission or registration (within 24 hours), but prior to the surgery/procedure. H&P update: H&P reviewed & patient examined, no change in patient's condition since H&P completed (All questions answered and consents signed. Site marked.)
[2017-10-10] MEDS ORDERED: PROPOFOL 200 MG/20 ML VIAL ONE (07:21)
[2017-10-10] MEDS ORDERED: PROPOFOL/EMULSION 500 MG/50 ML BOTTLE IV ONE (07:21)
[2017-10-10] MEDS ORDERED: fentaNYL 100 MCG/2 ML INJ ONE ×2 (07:21→10:09)
[2017-10-10] MEDS ORDERED: REMIFENTANIL HCL 2 MG VIAL ONE (07:21)
[2017-10-10] MEDS ORDERED: DEXAMETHASONE 4 MG/ML VIAL ONE ×2 (07:24→07:36)
[2017-10-10] MEDS ORDERED: LIDOCAINE 2% 5 ML SDV ONE (07:24)
[2017-10-10] MEDS ORDERED: ROCURONIUM 50 MG/5 ML VIAL ONE (07:24)
[2017-10-10] MEDS ORDERED: ONDANSETRON 4 MG/2 ML VIAL ONE (07:24)
[2017-10-10] MEDS ORDERED: ePHEDrine SULFATE 25 MG/5 ML SYR ONE (07:50)
[2017-10-10] MEDS ORDERED: ONDANSETRON 4 MG/2 ML VIAL IVP PRN ×2 (08:58→10:10)
[2017-10-10] MEDS ORDERED: ACETAMINOPHEN 500 MG TAB PO PRN (08:58)
[2017-10-10] MEDS ORDERED: oxyCODONE IR 5 MG TAB PO PRN (08:58)
[2017-10-10] MEDS ORDERED: ALBUTEROL 3 ML DEYVIAL IH PRN (08:58)
[2017-10-10] MEDS ORDERED: NALOXONE HCL 0.4 MG/ML INJ IVP PRN (08:58)
[2017-10-10] MEDS ORDERED: LR 500 ML IV PRN (08:58)
[2017-10-10] MEDS ORDERED: PROMETHAZINE HCL 25 MG/ML INJ IVP PRN (08:58)
[2017-10-10] MEDS ORDERED: epHEDrine SULFATE 10 MG/ML SYR IVP PRN (08:58)
[2017-10-10] MEDS ORDERED: LABETALOL HCL 5 MG/ML 20 ML MDV IVP PRN (08:58)
[2017-10-10] MEDS ORDERED: PHENYLEPHRINE HCL 100 MCG/ML SYR IVP PRN (08:58)
[2017-10-10] MEDS ORDERED: traMADol 50 MG TAB PO PRN (10:09)
[2017-10-10] MEDS ORDERED: ALPRAZolam 0.5 MG TAB PO PRN (10:09)
[2017-10-10] MEDS ORDERED: PANTOPRAZOLE SODIUM 40 MG TAB PO PRN (10:09)
[2017-10-10] MEDS ORDERED: MAGNESIUM HYDROXIDE 30 ML UDCUP PO PRN (10:10)
[2017-10-10] MEDS ORDERED: diphenhydrAMINE 25 MG CAP PO PRN (10:10)
[2017-10-10] MEDS ORDERED: DIAZEPAM 5 MG/ML 1 ML SYR ONE ×2 (10:10→11:00)
[2017-10-10] MEDS ORDERED: POLYETHYLENE GLYCOL 3350 17 GM PKT PO PRN (10:10)
[2017-10-10] MEDS ORDERED: ONDANSETRON DISINTEGRATING 4 MG TAB PO PRN (10:10)
[2017-10-10] MEDS ORDERED: BISACODYL 10 MG SUPP PR PRN (10:10)
[2017-10-10] MEDS ORDERED: METHOCARBAMOL 750 MG TAB PO PRN (10:10)
[2017-10-10] MEDS ORDERED: LACTULOSE 20 GM/30 ML UDCUP PO PRN (10:10)
[2017-10-10] MEDS: fentaNYL 100 MCG/2 ML INJ IVP PRN ×2 (10:11→11:18)
--- NOTE | 2017-10-10 10:20 | POSTOPPROG ---
Post Op Note Date of Operation: 10/10/17 Surgeon: Grant Andrade Establishment Guide: SIRENA Lewis PAC Anesthesia: GET(General Endotracheal) Pre-op Diagnosis: cervical stenosis Post-op Diagnosis: Cervical stenosis Indication: Cervical stenosis weakness Procedure: ACDF c4-6 Inf/Abcess present in the surg proc area at time of surgery?: No EBL: Minimal Complications: S: posterior neck pain O: NAD A&Ox3 Neck soft, supple, no edema. Incision c/d/i MAEx4 5/5 and equal in BUE and BLE, except left deltoid 4-/5 A/P 72y/o female s/p ACDF C4-6 Optimize pain management Advance diet as tolerated PT/OT Post op xrays pending JPx1 DVT prophx: TEDs, SCDs, Lovenox POD3, okay to restart Plavix POD7 Please notify NS with any change in neuro/motor exam Drains: Kong Reid
[2017-10-10] MEDS: DIAZEPAM 5 MG/ML 1 ML SYR IVP PRN ×4 (10:22→11:18)
--- NOTE | 2017-10-10 11:03 | GOP ---
[f rep st] OPERATIVE REPORT DATE OF OPERATION: 10/10/2017 SURGEON: Grant Andrade MD MID LEVEL CLINICIAN: Naheed Lewis PA-C. ANESTHESIA: General. PREOPERATIVE DIAGNOSIS: 1. Severe spinal stenosis, C4-C5 and C5-C6 with cervical myelopathy. 2. Cervicalgia. 3. Radiculopathy. 4. Treatment refractory to nonoperative management. POSTOPERATIVE DIAGNOSIS: 1. Severe spinal stenosis, C4-C5, C5-C6 with cervical myelopathy and large ventral osteophytes 2. Cervicalgia. 3. Radiculopathy. 4. Treatment refractory to nonoperative management. PROCEDURE PERFORMED: 1. Anterior arthrodesis with approach to C4, C5, and C6. 2. C4-C5 diskectomy with bilateral foraminotomies, osteophytectomies and interbody fusion using a 7 mm titanium coated polyetheretherketone cage filled with morselized autograft and allograft. 3. C5-C6 ddiskectomy with bilateral foraminotomies, osteophytectomies and interbody fusion using a 6 mm titanium coated polyetheretherketone cage filled with morselized autograft and allograft. 4. Anterior cervical fusion, C4, C5, and C6 with a 35 mm Medtronic Vassar translational plate. 5. Use of intraoperative fluoroscopy, less than 1 hour physician time. 6. Use of neuromonitoring. 7. Use of operating microscope. FINDINGS: large ventral osteophytes on C4 through C6 SPECIMENS: None. ESTIMATED BLOOD LOSS: 30 mL. INDICATIONS: The patient is a woman who presented with upper extremity weakness and had evidence of cervical stenosis with myelopathy on clinical examination. After discussion of the risks, benefits and alternatives we decided to proceed forth with surgery as described above. DESCRIPTION OF PROCEDURE: The patient was brought to the operating theater and underwent general endotracheal anesthesia without complications. She had Venodynes, YEFRI hose and the appropriate lines placed by Anesthesia. Her head was maintained supine on the operating table in slight extension. Using lateral fluoroscopy and a spinal needle, we picked our entry point to the C4 through C6 levels. This was marked as a transverse incision on the right side of her neck. This area was prepped and draped in the usual sterile surgical fashion. A time-out was completed per protocol. The patient received antibiotics within 1 hour of incision. The incision was taken with the scalpel blade and then using monopolar, taken down through subcutaneous tissue to the level of the platysma. The platysma was over-mined in the cranial and caudal directions. A Weitlaner was placed to maintain our exposure. We opened the fibers of the platysma cranially and caudally. Using both blunt and sharp dissection, we traveled in a plane medial to the carotid sheath and lateral to the esophagus and trachea to reach the prevertebral fascia. She had very large anterior osteophytes at C4, C5, and C6 eccentric to the left side which we then took down with the bur tip on the drill bit and [place]ell rongeur. We then verified our level using lateral fluoroscopy and a bent spinal needle. A deep retractor was placed to maintain our exposure and we confirmed our level using lateral fluoroscopy. The microscope was brought into the field to assist with microscopic dissection and to maintain illumination and magnification. We moved up to C4-C5 where we placed a Foster pin in C4 and C5 and placed C4-5 into mild distraction. We completed a C4-C5 diskectomy with bilateral foraminotomies and osteophytectomies. We prepared the cartilaginous endplates and measured the interbody space. We then placed a 7 mm titanium coated PEEK cage filled with morselized autograft and allograft into the C4-C5 disk space. We removed the Foster pin from C4, however, it did break at the shaft within the bone. We then used the [facility] hardware removal system to reverse thread out the Foster pin from the C4 vertebral body. We then took a new Foster pin and placed it into C6 and placed C5-C6 into mild distraction. We completed a C5-C6 diskectomy with bilateral foraminotomies and osteophytectomies. We prepared the cartilaginous plates and measured the interbody space. We placed a 6 mm titanium coated PEEK cage filled with morselized autograft and allograft into the C5-6 disk space. We removed the Foster pins and secured a 35 mm Medtronic Vassar translational plate onto the vertebral bodies of C4, C5, and C6. AP and lateral x-rays demonstrated good placement of the hardware. The wound was irrigated copiously with bacitracin irrigation. A drain was left in the subfascial space. The wound was then closed in multiple layers using Vicryl sutures deep layers and Dermabond for the skin. The patient's wounds were dressed sterilely. She was awakened, extubated and taken to the recovery room in stable condition. There were no complications and no noted changes on neuromonitoring throughout the procedure. COMPLICATION: None. /[id number]/MODL MTDD
[2017-10-10] MEDS ORDERED: CARBIDOPA/LEVODOPA 25 MG/100 MG TAB PO SCH ×2 (12:00→21:00)
[2017-10-10] MEDS: METHOCARBAMOL 500 MG TAB PO PRN ×2 (12:14→20:28)
[2017-10-10] MEDS: LISINOPRIL 20 MG TAB PO SCH (12:15)
[2017-10-10] MEDS ORDERED: hydrALAZINE 20 MG/ML VIAL IVP PRN (12:19)
--- NOTE | 2017-10-10 12:35 | POSTANESTH ---
Post Anesthetic Evaluation Cardiovascular Status: Similar to Pre-Op Cond, Tx Hyper/Hypo-tension Respiratory Status: Normal, Stable Level of Consciousness/Mental Status: Mildly Sleepy, Arousable Pain Control: Adequate, Prn Tx Ordered Nausea/Vomiting Control: Adequate, Prn Tx Ordered Complications Possibly Related to Anesthesia: None Noted
[2017-10-10] MEDS: ACETAMINOPHEN 500 MG TAB PO SCH ×2 (13:10→22:56)
[2017-10-10] MEDS: VENLAFAXINE XR 150 MG CAP PO SCH (13:11)
[2017-10-10] MEDS: oxyCODONE IR 5 MG TAB PO PRN ×2 (13:16→19:14)
[2017-10-10] MEDS: ceFAZolin 2 GM/DEXTROSE 100 ML IV SCH ×2 (13:17→22:57)
[2017-10-10] MEDS: SENNOSIDES/DOCUSATE SODIUM TAB PO SCH (20:17)
[2017-10-10] MEDS: OXYBUTYNIN CHLORIDE 5 MG TAB PO SCH (20:17)
[2017-10-10] MEDS: FAMOTIDINE 20 MG TAB PO SCH (20:17)
[2017-10-10] MEDS ORDERED: QUEtiapine FUMARATE 200 MG TAB PO SCH (21:00)
[2017-10-10] MEDS ORDERED: CETIRIZINE 10 MG TAB PO SCH (21:00)
[2017-10-10] MEDS ORDERED: ATORVASTATIN CALCIUM 40 MG TAB PO SCH (21:00)
[2017-10-11] MEDS: ACETAMINOPHEN 500 MG TAB PO SCH ×2 (05:28→15:29)
[2017-10-11] MEDS ORDERED: LISINOPRIL 20 MG TAB PO SCH (09:00)
[2017-10-11] MEDS ORDERED: AZELASTINE HCL EACHNARE SCH (09:00)
--- NOTE | 2017-10-11 09:03 | PDIAF ---
- Diagnosis Code Status: Full Code - Medication Management Discharge Medications: Medications to Continue on Transfer Atorvastatin Calcium [Lipitor 40 mg (*)] 40 mg PO HS 02/02/17 [Last Taken 22:00] Carbidopa/Levodopa 25/100Mg [Sinemet 25/100 MG (*)] 1 tab PO HS 02/02/17 [Last Taken 10/09/17 22:00] Cetirizine [ZyrTEC 10 mg (*)] 10 mg PO HS 02/02/17 [Last Taken 10/09/17 22:00] Oxybutynin Chloride 5 mg PO BID 02/02/17 [Last Taken 10/09/17 22:00] Pantoprazole Sodium [Protonix 40mg (*)] 40 mg PO DAILY PRN 02/02/17 [Last Taken 10/09/17 22:00] QUEtiapine FUMARATE [Seroquel 200 mg (*)] 200 mg PO HS 02/02/17 [Last Taken 22:00] Venlafaxine HCl [Venlafaxine HCl ER] 150 mg PO DAILY 02/02/17 [Last Taken 08:30] traMADol [Ultram 50 mg (*)] 50 mg PO DAILY PRN 08/06/17 [Last Taken 10/07/17] ALPRAZolam [Xanax 0.5 MG (*)] 0.5 mg PO DAILY PRN 10/03/17 [Last Taken 10/09/17 08:30] Azelastine HCl 2 sprays EACHNARE DAILY 10/03/17 [Last Taken 10/09/17 22:00] Lisinopril [Zestril 20 mg (*)] 20 mg PO DAILY 10/03/17 [Last Taken 10/09/17 08: 30] Acetaminophen [Tylenol ES 500 mg (*)] 1,000 mg PO Q8HRS tab 10/11/17 [Last Taken Unknown] Methocarbamol [Robaxin 500 mg (*)] 750 mg PO QID PRN #60 tab 10/11/17 [Last Taken Unknown] Sennosides/Docusate Sodium [Senokot-S] 1 - 2 tab PO BID tab 10/11/17 [Last Taken Unknown] oxyCODONE IR [Oxycodone Ir (*)] 5 - 10 mg PO Q4HRS PRN #60 tab 10/11/17 [Last Taken Unknown] Discharge Medications: Refer to the Discharge Home Medication list for PRN reason. - Orders Services needed: Physical Therapy, Occupational Therapy Isolation Type: Droplet Isolation Diet Recommendation: no restrictions on diet Diet Texture: Regular Texture Diet, Thin Liquids, Meds Whole w/Liquids, Meds Crushed in Puree Additional Instructions: Okay to restart Plavix POD 7. Follow up in 2-3wks in the office. Continue to wear hard collar other than eating or showering. Please call with any new symptoms, questions, or concerns - Follow Up Care Current Providers and Referrals: Aleyda Shultz MD [Primary Care Provider] -
--- NOTE | 2017-10-11 09:06 | NEUSURGPN ---
Assessment/Plan: A/P 72y/o female s/p ACDF C4-6 POD1 Optimize pain management Advance diet as tolerated PT/OT Post op xrays pending JPx1, will d/c today DVT prophx: TEDs, SCDs, Lovenox okay POD3, Okay to restart Plavix POD7 Seen [address] Dr. Andrade and myself. Please notify NS with any change in neuro/motor exam. Subjective: Posterior neck pain, tolerable, and improved since pre surgery. Feels like arm strength is improving. Objective: NAD A&Ox3 Neck soft, supple, no edema. Incision c/d/i MAEx4 5/5 and equal in BUE and BLE, except left deltoid 4/5 - Physician Patient Seen by : [facility] Physical Exam - Vitals, I&O, Labs I and O 10/10/17 10/11/17 10/12/17 05:59 05:59 05:59 Intake Total 1950 Output Total 1030 Balance 920 Weight 64.41 kg Intake: Oral (ml) 1000 IV Intake (ml) 950 Output: Urine (ml) 750 Toilet 750 Estimated Blood Loss (ml) 250 REGAN Drain Output (ml) 30 #1 Anterior Neck Kong 30 Reid Other: Intake Quantity Yes Sufficient Number of Voids Toilet 1 Vital Signs Temp Pulse Resp BP Pulse Ox 36.7 C 70 16 160/76 H 93 10/11/17 07:46 10/11/17 07:46 10/11/17 07:46 10/11/17 07:46 10/11/17 07:46 ICD10 Worksheet Patient Problems: Problems Problem Status Onset Chronic obstructive pulmonary disease with acute exacerbation Acute
[2017-10-11] MEDS: oxyCODONE IR 5 MG TAB PO PRN ×2 (09:22→15:29)
[2017-10-11] MEDS: FAMOTIDINE 20 MG TAB PO SCH (09:22)
[2017-10-11] MEDS: VENLAFAXINE XR 150 MG CAP PO SCH (09:23)
[2017-10-11] MEDS: OXYBUTYNIN CHLORIDE 5 MG TAB PO SCH (09:23)
[2017-10-11] MEDS: SENNOSIDES/DOCUSATE SODIUM TAB PO SCH (09:23)
[2017-10-11] MEDS: LISINOPRIL 20 MG TAB PO SCH (09:24)
--- NOTE | 2017-10-11 10:48 | ASMTCMCOM ---
CM Note CM Note Notes: CM met w/ pt and son that is visiting from out of town for dispo planning. PT has cleared pt to d/c home with 24hr supervision. Pt reports that she lives w/ her son, daughter in law and her grandson. Pt report that her her son that is visiting from out of town can stay with her for this long weekend. Pt reports that her daughter in law took some time off until she recovers. No other needs identified at this time. CM available for changes. Plan: Independent Date Signed: 10/11/2017 10:48 AM Electronically Signed By:MARGO Montero
--- NOTE | 2017-10-11 10:55 | ASMTLACE ---
LACE Length of stay for Answers: 1 day current admission Acuity / Level of Answers: No Care: Did the patient have an inpatient admission? Comorbidities - select Answers: Chronic pulmonary disease all that apply # of Emergency department Answers: 1-2 visits in the last 6 months Score: 4 Date Signed: 10/11/2017 10:55 AM Electronically Signed By:MARGO Montero
[2017-10-11 14:09] VITALS: BP 125/61
[2017-10-13] MEDS ORDERED: ENOXAPARIN 40 MG/0.4 ML SYR SC SCH (09:00)
== END 2017-10-11 15:37 | disposition home or self-care (01) ==
LOC: F3N 04:45
PROVIDERS: ADMIT Neurological Surgery; ATTEND Neurological Surgery
PROC: 0RG20A0 Fusion of 2 or more Cervical Vertebral Joints with Interbody Fusion Device, Anterior Approach, Anterior Column, Open Approach (ICD-10-PCS; principal; 2017-10-10 07:15)
DX: M48.02 Spinal stenosis, cervical region (principal); M50.021 Cervical disc disorder at C4-C5 level with myelopathy; F32.9 Major depressive disorder, single episode, unspecified; R31.9 Hematuria, unspecified; R09.02 Hypoxemia; G25.0 Essential tremor; E11.9 Type 2 diabetes mellitus without complications; Z87.891 Personal history of nicotine dependence
CPT/HCPCS: 22551; 72040; 76001; 92526; 92610; 97161; 97166; C1713; G8978; G8979; G8980; G8987; G8988; G8989; G8996; G8997; J0690; J1100; J2270; J2370; J2405; J2704; J3010; J3360

== ENCOUNTER → 2017-11-16 | Outpatient (CLI) | payer OTHER, MEDICARE | LOC: CIMAGING 10:41 | PROVIDERS: ATTEND Physician Assistant | DX: M25.551 Pain in right hip (principal); Q65.89 Other specified congenital deformities of hip; Z98.1 Arthrodesis status | CPT/HCPCS: 72040-PO; 73502-PO ==

== ENCOUNTER → 2017-12-31 | Outpatient (CLI) | payer OTHER, MEDICARE | DX: M47.12 Other spondylosis with myelopathy, cervical region (principal); M48.02 Spinal stenosis, cervical region; M53.82 Other specified dorsopathies, cervical region; Z98.1 Arthrodesis status ==

== ENCOUNTER → 2018-06-02 | Outpatient (CLI) | payer OTHER, MEDICARE | LOC: FIMAGING 08:19 | PROVIDERS: ATTEND Physician Assistant Surgical | DX: M50.321 Other cervical disc degeneration at C4-C5 level (principal); I65.22 Occlusion and stenosis of left carotid artery; Z98.1 Arthrodesis status ==